=== PATIENT | male | born 1955 | race Caucasian/White ===

== ENCOUNTER 2025-01-26 17:40 | Inpatient (IN) | payer MEDICARE, OTHER ==
[~2025-01-26] VITALS: Ht 167.6 cm; Wt 68.5 kg
[~2025-01-26 17:40] MED LIST: CLOT15CR5 TP; MERO500V23 IV
[2025-01-26] MEDS ORDERED: ACETAMINOPHEN 120 MG/SUPP.RECT RC ONE (17:57)
[2025-01-26] MEDS ORDERED: ACETAMINOPHEN 650 MG/SUPP.RECT RC ONE (17:57)
[2025-01-26] MEDS: ACETAMINOPHEN 120 MG/SUPP.RECT RC ONE (18:00)
[2025-01-26] MEDS: PIPERACILLIN /TAZOBACTAM 3.375 G in IV D5W 50 ML IV ONE (18:00)
[2025-01-26] MEDS: ACETAMINOPHEN 650 MG/SUPP.RECT RC ONE (18:00)
[2025-01-26] MEDS: IV NS 0.9% 500 ML IV ONE (18:09)
[2025-01-26] MEDS ORDERED: DIATR MEGLU/DIATRIZOATE SODIUM 30 ML BOTTLE (GASTROGRAPHIN) ONE ×2 (18:10→18:12)
[2025-01-26 18:14] LABS: CALCIUM, SERUM 10.1 mg/dL (8.5-10.1); CARBON DIOXIDE 30 mmol/L (21-32); CHLORIDE 106 mmol/L (98-107); CREATININE 1.5 mg/dL (0.6-1.3); GLUCOSE 217 mg/dL (74-106); POTASSIUM 4.5 mmol/L (3.5-5.1); SODIUM SERUM 145 mmol/L (136-145); UREA NITROGEN, BLOOD 61 mg/dL (7-18)
[2025-01-26 18:19] LABS: ALANINE AMINOTRANSFERASE 21 U/L (12-78); ALBUMIN 1.6 g/dL (3.4-5.0); ALKALINE PHOSPHATASE 102 U/L (46-116); ASPARTATE AMINOTRANSFERASE 42 U/L (15-37); BILIRUBIN,DIRECT 0.2 mg/dL (0.0-0.2); BILIRUBIN,TOTAL 0.5 mg/dL (0.2-1.0); TOTAL PROTEIN, SERUM 8.6 g/dL (6.4-8.2)
[2025-01-26 18:20] LABS: INR 1.13 (0.91-1.10); PARTIAL THROMBOPLASTIN TIME 28.6 SEC (24.3-34.3); PROTHROMBIN TIME 11.9 SECS (9.2-11.1)
[2025-01-26 18:26] LABS: LACTIC ACID 3.3 mmol/L (0.4-2.0)
[2025-01-26 18:38] LABS: BASOPHILS % (AUTO) 0.1 % (0.0-2.0); EOSINOPHILS # (AUTO) 0.1 K/uL (0.0-0.7); EOSINOPHILS % (AUTO) 0.2 % (0.0-6.0); HEMATOCRIT 28 % (39-51); HEMOGLOBIN 8.8 g/dL (13.5-17.5); LYMPHOCYTES # (AUTO) 2.1 K/uL (0.8-4.8); LYMPHOCYTES % (AUTO) 7.1 % (20.0-44.0); MEAN CORPUSCULAR HEMOGLOBIN 30 PG (26.0-33.0); MEAN CORPUSCULAR HGB CONC 31 g/dl (31.0-36.0); MEAN CORPUSCULAR VOLUME 95 fL (80-96); MONOCYTES # (AUTO) 1.6 K/uL (0.1-1.30); MONOCYTES % (AUTO) 5.5 % (2.0-12.0); NEUTROPHILS # (AUTO) 25.9 K/uL (1.8-8.9); NEUTROPHILS % (AUTO) 87.1 % (43.0-81.0); PLATELET COUNT (AUTO) 393 K/uL (150-450); RED BLOOD CELL COUNT(AUTO) 2.94 MIL/uL (4.5-6.0); RED CELL DISTRIBUTION WIDTH 18.4 % (11.5-15.0); WHITE BLOOD COUNT (AUTO) 29.7 K/uL (4.3-11.0)
[2025-01-26] MEDS: VANCOMYCIN 1 GM in IV D5W 250 ML IV ONE (18:40)
[2025-01-26 18:53] LABS: APPEARANCE,URINE SLIGHTLY CLOUDY (CLEAR); BILIRUBIN,URINE NEGATIVE (NEGATIVE); BLOOD, URINE 3+ Ery/uL (NEGATIVE); COLOR,URINE YELLOW (YELLOW); KETONES,URINE NEGATIVE (NEGATIVE); LEUKOCYTE ESTERASE ,URINE 2+ (NEGATIVE); NITRITE, URINE NEGATIVE (NEGATIVE); PROTEIN,URINE 2+ mg/dl (NEGATIVE); UGLUCOSE NEGATIVE (NEGATIVE); UROBILINOGEN,URINE 0.2 EU/dL (0.2)
[2025-01-26 18:54] LABS: ADD URINE CULTURE YES; WBC,URINE TOO NUMEROUS TO COUN /HPF (0-3)
[2025-01-26 18:55] LABS: RBC,URINE 21-50 /HPF (0-2); SQUAMOUS EPITHELIAL CELL,UR None Seen /HPF (None Seen)
[2025-01-26 18:56] LABS: BACTERIA,URINE Moderate /HPF (None Seen)
[2025-01-26 19:06] LABS: YEAST,URINE Moderate /HPF (None Seen)
[2025-01-26 19:16] LABS: CALCIUM OXALATE CRYSTALS,UR Rare /HPF (None Seen)
[2025-01-26 19:18] LABS: COARSE GRANULAR CASTS,URINE Moderate /LPF (None Seen)
[2025-01-26] MEDS ORDERED: IPRA3AMP23 IH (19:21)
[2025-01-26] MEDS ORDERED: ATOR40TA GT (19:21)
[2025-01-26] MEDS ORDERED: PANT40SU2 GT (19:21)
[2025-01-26] MEDS ORDERED: POLY17PO4 GT (19:21)
[2025-01-26] MEDS ORDERED: NA P133E RC (19:21)
[2025-01-26] MEDS ORDERED: NUT.237L30 GT (19:21)
[2025-01-26] MEDS ORDERED: CLOP75TA15 GT (19:21)
[2025-01-26] MEDS ORDERED: ZINC220C6 GT (19:21)
[2025-01-26] MEDS ORDERED: INSU100V7 SQ (19:21)
[2025-01-26] MEDS ORDERED: ASPI-1169 GT (19:21)
[2025-01-26] MEDS ORDERED: ASCO500T10 GT (19:21)
[2025-01-26] MEDS ORDERED: TAMS-12 GT (19:21)
[2025-01-26] MEDS ORDERED: ISOS10TA2 GT (19:21)
[2025-01-26] MEDS ORDERED: FINA5TAB11 GT (19:21)
[2025-01-26] MEDS ORDERED: ACET325T53 GT (19:21)
[2025-01-26] MEDS ORDERED: MAGN400T52 GT (19:21)
[2025-01-26] MEDS ORDERED: MELA3TAB41 GT (19:21)
[2025-01-26] MEDS ORDERED: MAGN400O6 GT (19:21)
[2025-01-26] MEDS ORDERED: BISA10SU11 RC (19:21)
[2025-01-26] MEDS ORDERED: METO25TA6 GT (19:21)
[2025-01-26] MEDS ORDERED: SODI650T GT (19:21)
[2025-01-26] MEDS ORDERED: MULT9LIQ6 GT (19:21)
[2025-01-26] MEDS ORDERED: [UNRECOGNIZED DRUG - CODE] SQ (19:21)
[2025-01-26] MEDS ORDERED: ALLO100T GT (19:21)
[2025-01-26] MEDS ORDERED: FERR220S2 GT (19:21)
[2025-01-26] MEDS ORDERED: AMIN30LI25 GT (19:21)
[2025-01-26] MEDS ORDERED: INSU100V3 SQ (19:21)
[2025-01-26] MEDS: IV NS 0.9% 1,000 ML BAG IV ONE (19:25)
[2025-01-26] MEDS ORDERED: Z GUARD REMEDY 4 OZ OINT TP PRN (21:30)
[2025-01-26] MEDS ORDERED: MAG HYDROX/AL HYDROX/SIMETH 30 ML UDC PO PRN (21:30)
[2025-01-26] MEDS ORDERED: ONDANSETRON HCL/PF 4 MG/2 ML VIAL IVP PRN (21:30)
[2025-01-26] MEDS ORDERED: MAGNESIUM HYDROXIDE 30 ML UDC PO PRN (21:30)
[2025-01-26] MEDS ORDERED: Medication Not On Formulary EA (Ipratropium/Albuterol Sulfate (Duoneb 2.5-0.5 Mg/3 Ml So IH PRN (21:30)
[2025-01-26] MEDS ORDERED: BISACODYL SUPP (10 MG) 10 MG/SUPP.RECT SUPP.RECT RC PRN (21:30)
[2025-01-26] MEDS: TAMSULOSIN 0.4 MG CAP.SR.24H GT SCH (22:21)
[2025-01-26] MEDS: ATORVASTATIN 40 MG TABLET GT SCH (22:21)
[2025-01-26] MEDS ORDERED: DEXTROSE 50%-WATER 50 ML DISP.SYRIN IV PRN (23:00)
[2025-01-26] MEDS: BLOOD SUGAR DIAGNOSTIC 1 EACH STRIP IN SCH (23:43)
[2025-01-26] MEDS: INSULIN REGULAR, HUMAN 100 UNIT/ML 3 ML VIAL SQ PRN (23:44)
[2025-01-27] VITALS (8 sets, daily range): BP systolic 92–110; BP diastolic 43–60; TEMP 98.4–99.5; O2SAT 94–100
[2025-01-27] MEDS: IPRATROPIUM NEB FS 0.5 MG/2.5 ML AMPUL.NEB IH PRN (04:29)
[2025-01-27] MEDS: ALBUTEROL FS 2.5 MG/0.5 ML VIAL.NEB NEB PRN (04:29)
[2025-01-27 06:28] LABS: CALCIUM, SERUM 9.4 mg/dL (8.5-10.1); CREATININE 1.4 mg/dL (0.6-1.3); PHOSPHORUS 3.7 mg/dL (2.5-4.9); POTASSIUM 3.9 mmol/L (3.5-5.1)
[2025-01-27 06:35] LABS: OCCULT BLOOD STOOL NEGATIVE (NEGATIVE)
[2025-01-27 07:52] LABS: BASOPHILS # (AUTO) 0.1 K/uL (0.0-0.2); BASOPHILS % (AUTO) 0.4 % (0.0-2.0); EOSINOPHILS # (AUTO) 0.1 K/uL (0.0-0.7); EOSINOPHILS % (AUTO) 0.3 % (0.0-6.0); HEMATOCRIT 24 % (39-51); HEMOGLOBIN 7.9 g/dL (13.5-17.5); LYMPHOCYTES # (AUTO) 1.4 K/uL (0.8-4.8); LYMPHOCYTES % (AUTO) 5.9 % (20.0-44.0); MEAN CORPUSCULAR HEMOGLOBIN 31 PG (26.0-33.0); MEAN CORPUSCULAR HGB CONC 32 g/dl (31.0-36.0); MEAN CORPUSCULAR VOLUME 94 fL (80-96); MONOCYTES # (AUTO) 1.2 K/uL (0.1-1.30); NEUTROPHILS # (AUTO) 21.6 K/uL (1.8-8.9); NEUTROPHILS % (AUTO) 88.4 % (43.0-81.0); PLATELET COUNT (AUTO) 337 K/uL (150-450); RED BLOOD CELL COUNT(AUTO) 2.59 MIL/uL (4.5-6.0); RED CELL DISTRIBUTION WIDTH 17.8 % (11.5-15.0); WHITE BLOOD COUNT (AUTO) 24.5 K/uL (4.3-11.0)
[2025-01-27] MEDS: SODIUM BICARBONATE 650 MG TABLET GT SCH (09:33)
[2025-01-27] MEDS: FERROUS SULFATE UDC 300 MG/5 ML UDC GT SCH (09:33)
[2025-01-27] MEDS: PANTOPRAZOLE 40 MG VIAL IV SCH (09:33)
[2025-01-27] MEDS: PROSOURCE / PROSTAT (PYXIS) 30 ML UDC GT SCH (09:33)
[2025-01-27] MEDS: ISOSORBIDE DINITRATE (10MG) 10 MG TABLET GT SCH (09:34)
[2025-01-27] MEDS: ASCORBIC ACID 500 MG TABLET GT SCH (09:34)
[2025-01-27] MEDS: ASPIRIN 81 MG TAB.CHEW GT SCH (09:34)
[2025-01-27] MEDS: METOPROLOL TARTRATE 25 MG TABLET GT SCH (09:34)
[2025-01-27] MEDS: MULTIVITAMINS,THERAGRAN 1 UDTAB TABLET GT SCH (09:34)
[2025-01-27] MEDS: MAGNESIUM OXIDE 400 MG TABLET GT SCH (09:34)
[2025-01-27] MEDS: CLOPIDOGREL BISULFATE 75 MG TABLET GT SCH (09:34)
[2025-01-27] MEDS: ZINC SULFATE 220 MG CAPSULE GT SCH (09:34)
[2025-01-27] MEDS: POLYETHYLENE GLYCOL 3350 17 GM POWD.PACK GT SCH (09:36)
[2025-01-27] MEDS: FREE WATER VIA TUBE FEEDING GT SCH (10:00)
[2025-01-27] MEDS: IV D5/0.45 NACL 1,000 ML IV PRN (10:45)
[2025-01-27] MEDS: PIPERACILLIN /TAZOBACTAM 3.375 G in IV D5W 50 ML IV SCH (10:56)
[2025-01-27] MEDS: THERAHONEY GEL 1.5 OZ TUBE TP SCH (10:58)
[2025-01-27] MEDS: GLUCERNA 1.2 1,000 ML BOTTLE NG PRN (11:40)
[2025-01-27] MEDS ORDERED: EPOETIN ALFA (2000 UNIT) 2,000 UNIT/ML VIAL SQ SCH (12:00)
[2025-01-27] MEDS: FINASTERIDE (5 MG) 5 MG TABLET GT SCH (17:27)
[2025-01-27] MEDS: EPOETIN ALFA (2000 UNIT) 2,000 UNIT/ML VIAL SQ SCH (17:57)
[2025-01-27] MEDS: FLUCONAZOLE (100 MG) 100 MG TABLET PO SCH (22:28)
[2025-01-27] MEDS ORDERED: MEROPENEM 1 G VIAL IV ONE (22:33)
[2025-01-27] MEDS ORDERED: VANCOMYCIN 1 GM /D5W 250 ML PB IV ONE (22:34)
[2025-01-27] MEDS: MEROPENEM 1 G in IV NS 0.9% 100 ML IV ONE (22:37)
[2025-01-27] MEDS: VANCOMYCIN 1 GM in IV D5W 250ml IV ONE (23:13)
[2025-01-28] VITALS (8 sets, daily range): BP systolic 93–115; BP diastolic 44–65; TEMP 97.7–101.8; O2SAT 92–100
[2025-01-28] MEDS: ACETAMINOPHEN 325 MG TABLET PO PRN (04:30)
[2025-01-28 07:20] LABS: BILIRUBIN,TOTAL 0.4 mg/dL (0.2-1.0); CREATININE 1.5 mg/dL (0.6-1.3); POTASSIUM 3.8 mmol/L (3.5-5.1); TOTAL PROTEIN, SERUM 6.7 g/dL (6.4-8.2)
[2025-01-28 07:32] LABS: MAGNESIUM 1.9 mg/dL (1.8-2.4)
[2025-01-28 07:34] LABS: BASOPHILS % (AUTO) 0.1 % (0.0-2.0); EOSINOPHILS # (AUTO) 0.1 K/uL (0.0-0.7); EOSINOPHILS % (AUTO) 0.6 % (0.0-6.0); HEMATOCRIT 25 % (39-51); HEMOGLOBIN 7.5 g/dL (13.5-17.5); LYMPHOCYTES % (AUTO) 6.3 % (20.0-44.0); MEAN CORPUSCULAR HEMOGLOBIN 30 PG (26.0-33.0); MEAN CORPUSCULAR HGB CONC 31 g/dl (31.0-36.0); MEAN CORPUSCULAR VOLUME 98 fL (80-96); MONOCYTES # (AUTO) 0.9 K/uL (0.1-1.30); MONOCYTES % (AUTO) 5.5 % (2.0-12.0); NEUTROPHILS # (AUTO) 14.1 K/uL (1.8-8.9); NEUTROPHILS % (AUTO) 87.5 % (43.0-81.0); PLATELET COUNT (AUTO) 299 K/uL (150-450); RED BLOOD CELL COUNT(AUTO) 2.52 MIL/uL (4.5-6.0); RED CELL DISTRIBUTION WIDTH 18.4 % (11.5-15.0); WHITE BLOOD COUNT (AUTO) 16.1 K/uL (4.3-11.0)
[2025-01-28] MEDS: PANTOPRAZOLE 40 MG/PACK PACK NG SCH (08:35)
[2025-01-28] MEDS: MEROPENEM 1 G in IV NS 0.9% 100 ML IV SCH (09:39)
[2025-01-28] MEDS: VANCOMYCIN 750 MG in IV D5W 250 ML IV SCH (23:13)
[2025-01-29] VITALS: BP 101/56; TEMP 99.1; O2SAT 98
[2025-01-29 04:00] VITALS: BP 102/54; TEMP 97.5; O2SAT 100
[2025-01-29 07:34] LABS: CALCIUM, SERUM 8.9 mg/dL (8.5-10.1); CREATININE 1.6 mg/dL (0.6-1.3); POTASSIUM 3.5 mmol/L (3.5-5.1)
[2025-01-29 07:46] LABS: BASOPHILS % (AUTO) 0.1 % (0.0-2.0); EOSINOPHILS # (AUTO) 0.1 K/uL (0.0-0.7); EOSINOPHILS % (AUTO) 0.5 % (0.0-6.0); HEMATOCRIT 25 % (39-51); HEMOGLOBIN 7.8 g/dL (13.5-17.5); LYMPHOCYTES % (AUTO) 4.7 % (20.0-44.0); MEAN CORPUSCULAR HEMOGLOBIN 30 PG (26.0-33.0); MEAN CORPUSCULAR HGB CONC 32 g/dl (31.0-36.0); MEAN CORPUSCULAR VOLUME 94 fL (80-96); MONOCYTES % (AUTO) 5.1 % (2.0-12.0); NEUTROPHILS # (AUTO) 18.4 K/uL (1.8-8.9); NEUTROPHILS % (AUTO) 89.6 % (43.0-81.0); PLATELET COUNT (AUTO) 315 K/uL (150-450); RED BLOOD CELL COUNT(AUTO) 2.63 MIL/uL (4.5-6.0); RED CELL DISTRIBUTION WIDTH 18.4 % (11.5-15.0); WHITE BLOOD COUNT (AUTO) 20.5 K/uL (4.3-11.0)
[2025-01-29 08:00] VITALS: BP 106/54; TEMP 97.7; O2SAT 97
[2025-01-29 12:00] VITALS: BP 101/46; TEMP 98.4; O2SAT 100
[2025-01-29 16:00] VITALS: BP 108/57; TEMP 98.2; O2SAT 96
[2025-01-29 20:00] VITALS: BP 92/54; TEMP 97.7; O2SAT 94
[2025-01-30] VITALS: BP 105/50; TEMP 97.7; O2SAT 95
[2025-01-30 04:00] VITALS: BP 92/79; TEMP 98.4; O2SAT 98
[2025-01-30 06:41] LABS: CALCIUM, SERUM 8.4 mg/dL (8.5-10.1); CREATININE 1.8 mg/dL (0.6-1.3); POTASSIUM 3.7 mmol/L (3.5-5.1)
[2025-01-30 08:00] VITALS: BP 107/64; TEMP 97.5; O2SAT 98
[2025-01-30 12:00] VITALS: BP 128/72; TEMP 97.9; O2SAT 98
[2025-01-30 12:12] LABS: PTH, INTACT 20 pg/mL (15-65)
[2025-01-30 16:00] VITALS: BP 128/72; TEMP 97.8; O2SAT 98
[2025-01-30 20:00] VITALS: BP 127/56; TEMP 97.2; O2SAT 100
[2025-01-31] VITALS (8 sets, daily range): BP systolic 112–129; BP diastolic 55–73; TEMP 97.5–98.5; O2SAT 94–100
[2025-01-31 06:57] LABS: BASOPHILS % (AUTO) 0.4 % (0.0-2.0); EOSINOPHILS # (AUTO) 0.2 K/uL (0.0-0.7); EOSINOPHILS % (AUTO) 1.8 % (0.0-6.0); HEMATOCRIT 22 % (39-51); HEMOGLOBIN 7.1 g/dL (13.5-17.5); LYMPHOCYTES # (AUTO) 0.8 K/uL (0.8-4.8); LYMPHOCYTES % (AUTO) 6.4 % (20.0-44.0); MEAN CORPUSCULAR HEMOGLOBIN 31 PG (26.0-33.0); MEAN CORPUSCULAR HGB CONC 33 g/dl (31.0-36.0); MEAN CORPUSCULAR VOLUME 93 fL (80-96); MONOCYTES # (AUTO) 0.8 K/uL (0.1-1.30); MONOCYTES % (AUTO) 6.4 % (2.0-12.0); NEUTROPHILS # (AUTO) 11.1 K/uL (1.8-8.9); PLATELET COUNT (AUTO) 300 K/uL (150-450); RED BLOOD CELL COUNT(AUTO) 2.34 MIL/uL (4.5-6.0); RED CELL DISTRIBUTION WIDTH 18.3 % (11.5-15.0)
[2025-01-31 07:39] LABS: CALCIUM, SERUM 8.8 mg/dL (8.5-10.1); POTASSIUM 3.9 mmol/L (3.5-5.1)
[2025-01-31 08:10] LABS: *SPE A/G RATIO 0.3 (0.7-1.7); *SPE ALBUMIN 1.5 g/dL (2.9-4.4); *SPE ALPHA-1-GLOBULIN 0.4 g/dL (0.0-0.4); *SPE ALPHA-2-GLOBULIN 1.2 g/dL (0.4-1.0); *SPE GLOBULIN, TOTAL 4.7 g/dL (2.2-3.9); *SPE M-SPIKE Not Observed g/dL (Not Observed); *SPE PROTEIN TOTAL 6.2 g/dL (6.0-8.5); *SPEGAMMA GLOBULIN 2.1 g/dL (0.4-1.8)
[2025-01-31] MEDS: VANCOMYCIN 1 GM in IV D5W 250ml IV SCH (21:41)
[2025-02-01] VITALS (8 sets, daily range): BP systolic 105–132; BP diastolic 50–62; TEMP 98.2–99.5; O2SAT 96–100
[2025-02-01 06:31] LABS: APPEARANCE,URINE TURBID (CLEAR); BILIRUBIN,URINE NEGATIVE (NEGATIVE); BLOOD, URINE 3+ Ery/uL (NEGATIVE); COLOR,URINE YELLOW (YELLOW); KETONES,URINE TRACE mg/dL (NEGATIVE); LEUKOCYTE ESTERASE ,URINE 3+ (NEGATIVE); NITRITE, URINE NEGATIVE (NEGATIVE); PROTEIN,URINE 2+ mg/dl (NEGATIVE); UGLUCOSE NEGATIVE (NEGATIVE); UROBILINOGEN,URINE 0.2 EU/dL (0.2)
[2025-02-01 07:07] LABS: CREATININE, URINE 60.8 MG/DL (30.0-125.0); URINE TOTAL PROTEIN 263.7 mg/dL (0-11.9)
[2025-02-01 07:17] LABS: BASOPHILS % (AUTO) 0.2 % (0.0-2.0); EOSINOPHILS # (AUTO) 0.3 K/uL (0.0-0.7); EOSINOPHILS % (AUTO) 1.8 % (0.0-6.0); HEMATOCRIT 24 % (39-51); HEMOGLOBIN 7.7 g/dL (13.5-17.5); LYMPHOCYTES # (AUTO) 0.8 K/uL (0.8-4.8); LYMPHOCYTES % (AUTO) 5.2 % (20.0-44.0); MEAN CORPUSCULAR HEMOGLOBIN 30 PG (26.0-33.0); MEAN CORPUSCULAR HGB CONC 33 g/dl (31.0-36.0); MEAN CORPUSCULAR VOLUME 92 fL (80-96); MONOCYTES # (AUTO) 0.6 K/uL (0.1-1.30); MONOCYTES % (AUTO) 4.4 % (2.0-12.0); NEUTROPHILS % (AUTO) 88.4 % (43.0-81.0); PLATELET COUNT (AUTO) 333 K/uL (150-450); RED BLOOD CELL COUNT(AUTO) 2.54 MIL/uL (4.5-6.0); RED CELL DISTRIBUTION WIDTH 18.2 % (11.5-15.0); WHITE BLOOD COUNT (AUTO) 14.7 K/uL (4.3-11.0)
[2025-02-01 07:26] LABS: CREATININE 1.9 mg/dL (0.6-1.3); POTASSIUM 4.2 mmol/L (3.5-5.1)
[2025-02-01 07:35] LABS: ADD URINE CULTURE YES; WBC,URINE TOO NUMEROUS TO COUN /HPF (0-3)
[2025-02-01 07:36] LABS: BACTERIA,URINE Moderate /HPF (None Seen); COARSE GRANULAR CASTS,URINE Moderate /LPF (None Seen); SQUAMOUS EPITHELIAL CELL,UR Few /HPF (None Seen); YEAST,URINE Moderate /HPF (None Seen)
[2025-02-01 08:31] LABS: EOSINOPHIL,URINE None Seen
[2025-02-01 10:26] LABS: PLATELET ESTIMATE ADEQUATE
[2025-02-01 10:28] LABS: NEUTROPHILS % (MANUAL) 91 (42-76)
[2025-02-01 10:29] LABS: LYMPHOCYTES % (MANUAL) 7 % (16-48); MONOCYTES % (MANUAL) 2 % (0-11.0); STOMATOCYTES FEW
[2025-02-01 10:30] LABS: ANISOCYTOSIS 1+
[2025-02-02] VITALS (7 sets, daily range): BP systolic 94–123; BP diastolic 44–60; TEMP 97.7–99; O2SAT 97–100
[2025-02-02 06:32] LABS: CALCIUM, SERUM 8.8 mg/dL (8.5-10.1); CREATININE 1.9 mg/dL (0.6-1.3); POTASSIUM 4.4 mmol/L (3.5-5.1)
[2025-02-03] VITALS: BP 122/44; TEMP 99; O2SAT 100
[2025-02-03 04:00] VITALS: BP 119/43; TEMP 98.8; O2SAT 100
[2025-02-03 06:30] LABS: BASOPHILS % (AUTO) 0.2 % (0.0-2.0); EOSINOPHILS # (AUTO) 0.3 K/uL (0.0-0.7); HEMATOCRIT 24 % (39-51); HEMOGLOBIN 7.5 g/dL (13.5-17.5); LYMPHOCYTES # (AUTO) 1.7 K/uL (0.8-4.8); LYMPHOCYTES % (AUTO) 11.1 % (20.0-44.0); MEAN CORPUSCULAR HEMOGLOBIN 29 PG (26.0-33.0); MEAN CORPUSCULAR HGB CONC 32 g/dl (31.0-36.0); MEAN CORPUSCULAR VOLUME 92 fL (80-96); MONOCYTES # (AUTO) 0.7 K/uL (0.1-1.30); MONOCYTES % (AUTO) 4.8 % (2.0-12.0); NEUTROPHILS # (AUTO) 12.3 K/uL (1.8-8.9); NEUTROPHILS % (AUTO) 81.9 % (43.0-81.0); PLATELET COUNT (AUTO) 333 K/uL (150-450); RED BLOOD CELL COUNT(AUTO) 2.59 MIL/uL (4.5-6.0); RED CELL DISTRIBUTION WIDTH 18.5 % (11.5-15.0); WHITE BLOOD COUNT (AUTO) 15.1 K/uL (4.3-11.0)
[2025-02-03 06:35] LABS: CREATININE 1.9 mg/dL (0.6-1.3); POTASSIUM 4.4 mmol/L (3.5-5.1)
[2025-02-03 08:00] VITALS: BP 106/57; TEMP 98.2; O2SAT 99
[2025-02-03 09:40] LABS: LYMPHOCYTES % (MANUAL) 2 % (16-48); MONOCYTES % (MANUAL) 4 % (0-11.0); NEUTROPHILS % (MANUAL) 94 (42-76); PLATELET ESTIMATE ADEQUATE
[2025-02-03 09:41] LABS: ANISOCYTOSIS 1+; STOMATOCYTES 2+
[2025-02-03 12:00] VITALS: BP 125/57; TEMP 98.2; O2SAT 100
[2025-02-03 16:00] VITALS: BP 113/64; TEMP 99; O2SAT 100
[2025-02-03 20:00] VITALS: BP 107/51; TEMP 99.9; O2SAT 100
[2025-02-04] VITALS: BP 94/43; TEMP 97.4; O2SAT 100
[2025-02-04 04:00] VITALS: BP 100/49; TEMP 99; O2SAT 100
[2025-02-04 06:31] LABS: BASOPHILS # (AUTO) 0.1 K/uL (0.0-0.2); BASOPHILS % (AUTO) 0.4 % (0.0-2.0); EOSINOPHILS # (AUTO) 0.2 K/uL (0.0-0.7); EOSINOPHILS % (AUTO) 1.5 % (0.0-6.0); HEMATOCRIT 24 % (39-51); HEMOGLOBIN 7.6 g/dL (13.5-17.5); LYMPHOCYTES # (AUTO) 1.5 K/uL (0.8-4.8); LYMPHOCYTES % (AUTO) 11.3 % (20.0-44.0); MEAN CORPUSCULAR HEMOGLOBIN 30 PG (26.0-33.0); MEAN CORPUSCULAR HGB CONC 32 g/dl (31.0-36.0); MEAN CORPUSCULAR VOLUME 92 fL (80-96); MONOCYTES # (AUTO) 0.7 K/uL (0.1-1.30); MONOCYTES % (AUTO) 5.6 % (2.0-12.0); NEUTROPHILS # (AUTO) 10.5 K/uL (1.8-8.9); NEUTROPHILS % (AUTO) 81.2 % (43.0-81.0); PLATELET COUNT (AUTO) 296 K/uL (150-450); RED BLOOD CELL COUNT(AUTO) 2.56 MIL/uL (4.5-6.0); RED CELL DISTRIBUTION WIDTH 18.2 % (11.5-15.0); WHITE BLOOD COUNT (AUTO) 12.9 K/uL (4.3-11.0)
[2025-02-04 06:54] LABS: CALCIUM, SERUM 8.9 mg/dL (8.5-10.1); CREATININE 1.8 mg/dL (0.6-1.3); POTASSIUM 4.5 mmol/L (3.5-5.1)
[2025-02-04 08:00] VITALS: BP 99/46; TEMP 98.1; O2SAT 100
[2025-02-04 12:00] VITALS: BP 99/46; TEMP 98.1; O2SAT 100
[2025-02-04] MEDS: VANCOMYCIN 1 GM in IV D5W 250ml IV SCH (13:59)
[2025-02-04 15:12] LABS: EOSINOPHILS % (MANUAL) 1 % (0-4); LYMPHOCYTES % (MANUAL) 6 % (16-48); MONOCYTES % (MANUAL) 2 % (0-11.0); NEUTROPHILS % (MANUAL) 91 (42-76); PLATELET ESTIMATE ADEQUATE
[2025-02-04 15:14] LABS: ANISOCYTOSIS 1+
[2025-02-04 16:00] VITALS: BP 108/49; TEMP 97.3; O2SAT 100
[2025-02-04 20:00] VITALS: BP 108/57; TEMP 97.3; O2SAT 100
[2025-02-05] VITALS: BP 110/55; TEMP 99; O2SAT 99
[2025-02-05 04:00] VITALS: BP 105/68; TEMP 99.5; O2SAT 95
[2025-02-05 07:25] LABS: BASOPHILS # (AUTO) 0.1 K/uL (0.0-0.2); BASOPHILS % (AUTO) 0.5 % (0.0-2.0); EOSINOPHILS # (AUTO) 0.2 K/uL (0.0-0.7); HEMATOCRIT 22 % (39-51); HEMOGLOBIN 7.1 g/dL (13.5-17.5); LYMPHOCYTES # (AUTO) 1.3 K/uL (0.8-4.8); LYMPHOCYTES % (AUTO) 7.1 % (20.0-44.0); MEAN CORPUSCULAR HEMOGLOBIN 29 PG (26.0-33.0); MEAN CORPUSCULAR HGB CONC 32 g/dl (31.0-36.0); MEAN CORPUSCULAR VOLUME 91 fL (80-96); MONOCYTES # (AUTO) 1.1 K/uL (0.1-1.30); MONOCYTES % (AUTO) 5.5 % (2.0-12.0); NEUTROPHILS # (AUTO) 16.4 K/uL (1.8-8.9); NEUTROPHILS % (AUTO) 85.9 % (43.0-81.0); PLATELET COUNT (AUTO) 348 K/uL (150-450); RED BLOOD CELL COUNT(AUTO) 2.41 MIL/uL (4.5-6.0); RED CELL DISTRIBUTION WIDTH 18.4 % (11.5-15.0); WHITE BLOOD COUNT (AUTO) 19.1 K/uL (4.3-11.0)
[2025-02-05 07:36] LABS: CALCIUM, SERUM 8.8 mg/dL (8.5-10.1); CREATININE 2.1 mg/dL (0.6-1.3); POTASSIUM 4.5 mmol/L (3.5-5.1)
[2025-02-05 08:00] VITALS: BP 113/55; TEMP 98.6; O2SAT 98
[2025-02-05] MEDS ORDERED: MERO1VIA23 IV (09:29)
[2025-02-05] MEDS ORDERED: VANC750F2 IV (09:29)
[2025-02-05] MEDS ORDERED: FLUC100T8 PO (09:29)
[2025-02-05 14:27] VITALS: BP 100/57; TEMP 98.1; O2SAT 99
== END 2025-02-05 14:22 | DRG 871 ==
LOC: ER 17:43 → TELE1 20:13
PROVIDERS: ATTEND Internal Medicine
DX: A41.9 Sepsis, unspecified organism (principal); E43 Unspecified severe protein-calorie malnutrition; J15.69 Pneumonia due to other Gram-negative bacteria; G93.41 Metabolic encephalopathy; J96.01 Acute respiratory failure with hypoxia; N17.0 Acute kidney failure with tubular necrosis; E87.20 Acidosis, unspecified; E87.0 Hyperosmolality and hypernatremia; D68.59 Other primary thrombophilia; D63.8 Anemia in other chronic diseases classified elsewhere; E11.22 Type 2 diabetes mellitus with diabetic chronic kidney disease; M24.561 Contracture, right knee; M24.562 Contracture, left knee; N18.9 Chronic kidney disease, unspecified; R13.10 Dysphagia, unspecified; N40.0 Benign prostatic hyperplasia without lower urinary tract symptoms; Z86.73 Personal history of transient ischemic attack (TIA), and cerebral infarction without residual deficits; Z93.1 Gastrostomy status; Z79.4 Long term (current) use of insulin; I25.10 Atherosclerotic heart disease of native coronary artery without angina pectoris; I12.9 Hypertensive chronic kidney disease with stage 1 through stage 4 chronic kidney disease, or unspecified chronic kidney disease; E88.09 Other disorders of plasma-protein metabolism, not elsewhere classified; E83.9 Disorder of mineral metabolism, unspecified; Z74.01 Bed confinement status; Z68.24 Body mass index [BMI] 24.0-24.9, adult; L89.626 Pressure-induced deep tissue damage of left heel; L89.616 Pressure-induced deep tissue damage of right heel; L89.896 Pressure-induced deep tissue damage of other site; L89.326 Pressure-induced deep tissue damage of left buttock; L89.150 Pressure ulcer of sacral region, unstageable; L89.45 Pressure ulcer of contiguous site of back, buttock and hip, unstageable; N13.9 Obstructive and reflux uropathy, unspecified; E86.0 Dehydration
CPT/HCPCS: 31720; 36415; 71045-TC; 74018; 76770-TC; 80048-TC; 80053-TC; 80076-TC; 80202-TC; 81001; 82272-TC; 82550-TC; 82553; 82570-TC; 82962-TC; 83605-TC; 83735-TC; 83880; 83970; 84100-TC; 84155; 84165; 84300-TC; 85025-TC; 85730-TC; 87040-TC; 87081-TC; 87086-TC; 93307-TC; 94760-TC; 94762-TC; 94799-TC; A4223; A6403; G0378; J0885; J1815; J2185; J2470; J2543; J3370; J3371; J3490; J7030; J7040; J7050; J7060; Q9963